=== PATIENT | female | born 1965 | race Caucasian/White ===

== ENCOUNTER 2019-04-30 06:00 | Day surgery (SDC) | payer OTHER ==
[~2019-04-30] VITALS: Ht 160 cm; Wt 94.8 kg
[2019-04-30] MEDS ORDERED: CEFAZOLIN SOD 1 GM in D5W 50 ML IV ONE (07:15)
[2019-04-30] MEDS ORDERED: SEVOFLURANE 15 MIN GAS INH ONE (07:45)
[2019-04-30] MEDS ORDERED: LR 1,000 ML IV.SOLN IV ONE (07:45)
[2019-04-30] MEDS ORDERED: NS IRRIG SOLN 1000 ML IR ONE (07:45)
[2019-04-30] MEDS ORDERED: ONDANSETRON HCL 4 MG/2 ML VIAL IVP ONE (07:45)
[2019-04-30] MEDS ORDERED: NS 1000 ML IV.SOLN IV ONE (07:45)
[2019-04-30] MEDS ORDERED: PROPOFOL 200MG/ 20ML VIAL (DIPRIVAN) IV ONE (07:45)
[2019-04-30] MEDS ORDERED: MIDAZOLAM HCL 5 MG/5 ML VIAL IVP ONE (07:45)
[2019-04-30] MEDS ORDERED: fentaNYL CITRATE/PF 100 MCG/2 ML AMP IVP ONE (07:45)
[2019-04-30] MEDS ORDERED: LR 1,000 ML IV SCH (08:27)
[2019-04-30] MEDS ORDERED: MEPERIDINE HCL/PF 25 MG/ML DISP.SYRIN IVP PRN (08:30)
[2019-04-30] MEDS ORDERED: METOCLOPRAMIDE HCL 10 MG/2 ML VIAL IVP PRN (08:30)
[2019-04-30] MEDS ORDERED: MEPERIDINE HCL/PF 50 MG/ML AMP IVP PRN ×2 (08:30)
[2019-04-30] MEDS ORDERED: KETOROLAC TROMETHAMINE 30 MG VIAL IVP PRN (08:30)
[2019-04-30] MEDS ORDERED: ONDANSETRON HCL 4 MG/2 ML VIAL IVP PRN (08:45)
[2019-04-30] MEDS ORDERED: OXYCODONE/ACETAMINOPHEN 5-325 TABLET PO PRN (08:45)
[2019-04-30] MEDS ORDERED: HYDROcodone/ACETAMIN 5-325 MG TAB (NORCO/ VICODIN) PO PRN (08:45)
[2019-04-30 10:06] VITALS: BP_SYST 113
[2019-04-30] MEDS ORDERED: OXYCODONE/ACETAMINOPHEN 5-325 TABLET ONE (10:12)
== END 2019-04-30 11:55 | disposition home or self-care (01) ==
LOC: SMU 06:00 → SDS 06:00 → SMU 11:02 → SDS 11:55
PROVIDERS: ATTEND Specialist
DX: N95.0 Postmenopausal bleeding (principal); N88.2 Stricture and stenosis of cervix uteri
CPT/HCPCS: 58558; 88305; J0690; J2250; J2405; J2704; J3010; J7030; J7060; J7120

== ENCOUNTER 2022-11-16 14:20 | Emergency (ER) | payer OTHER ==
[~2022-11-16] VITALS: Ht 160 cm; Wt 112.5 kg
[2022-11-16 14:32] VITALS: BP_SYST 132; PULSE 77; RESP 19; TEMP 97.6; O2SAT 99
[2022-11-16] MEDS ORDERED: HYDROcodone/ACETAMIN 10-325 MG TAB PO ONE (15:15)
[2022-11-16] MEDS ORDERED: IBUPROFEN 800 MG TABLET PO ONE (15:15)
[2022-11-16] MEDS ORDERED: cefTRIAXone 1 GM VIAL IM ONE (15:15)
[2022-11-16] MEDS ORDERED: IBUP-1971 PO (15:19)
[2022-11-16] MEDS ORDERED: HYDR-3927 PO (15:19)
[2022-11-16] MEDS ORDERED: CLIN-142 PO (15:19)
[2022-11-16 16:01] VITALS: BP_SYST 142; PULSE 79; RESP 18; TEMP 97.4; O2SAT 95
== END 2022-11-16 16:03 | disposition home or self-care (01) ==
LOC: SED 14:20
DX: N75.1 Abscess of Bartholin's gland (principal); R10.2 Pelvic and perineal pain; Z88.1 Allergy status to other antibiotic agents; Z88.2 Allergy status to sulfonamides
CPT/HCPCS: 99284; 82962; 96372; J0696

== ENCOUNTER 2023-11-13 06:23 | Day surgery (SDC) | payer OTHER ==
[~2023-11-13] VITALS: Ht 160 cm; Wt 110.7 kg
[~2023-11-13 06:23] MED LIST: CLIN-142 PO; HYDR-3927 PO; IBUP-1971 PO
[2023-11-13] MEDS ORDERED: CEFAZOLIN SOD 2 GM in D5W 50 ML IV ONE (07:00)
[2023-11-13 07:57] VITALS: O2SAT 99
[2023-11-13] MEDS ORDERED: fentaNYL CITRATE/PF 100 MCG/2 ML AMP ONE (08:15)
[2023-11-13] MEDS ORDERED: NS IRRIG SOLN 1000 ML IR ONE (08:15)
[2023-11-13] MEDS ORDERED: METOCLOPRAMIDE HCL 10 MG/2 ML VIAL ONE (08:15)
[2023-11-13] MEDS ORDERED: MIDAZOLAM HCL 2 MG/2 ML VIAL (VERSED) ONE (08:15)
[2023-11-13] MEDS ORDERED: HYDROmorphone 2 MG/ML VIAL ONE (08:15)
[2023-11-13] MEDS ORDERED: MIDAZOLAM HCL 5 MG/ML VIAL (VERSED) IV ONE (08:15)
[2023-11-13] MEDS ORDERED: NS 1000 ML IV.SOLN IV ONE (08:15)
[2023-11-13] MEDS ORDERED: NS IRRIG SOLN 5000 ML IR ONE (08:15)
[2023-11-13] MEDS ORDERED: ONDANSETRON HCL 4 MG/2 ML VIAL ONE (08:15)
[2023-11-13] MEDS ORDERED: KETOROLAC TROMETHAMINE 30 MG VIAL ONE (08:15)
[2023-11-13] MEDS ORDERED: LR 1,000 ML IV SCH (09:00)
[2023-11-13] MEDS ORDERED: KETOROLAC TROMETHAMINE 30 MG VIAL IVP PRN ×2 (09:00)
[2023-11-13] MEDS ORDERED: ONDANSETRON HCL 4 MG/2 ML VIAL IVP PRN ×2 (09:00→09:30)
[2023-11-13] MEDS ORDERED: HYDROcodone/ACETAMIN 5-325 MG TAB (NORCO/ VICODIN) PO PRN (09:30)
[2023-11-13] MEDS ORDERED: OXYCODONE/ACETAMINOPHEN 5-325 TABLET PO PRN ×2 (09:30)
[2023-11-13 13:17] VITALS: BP_SYST 101; PULSE 65; RESP 20
== END 2023-11-13 12:55 | disposition home or self-care (01) ==
LOC: SDS 06:23 → SMU 06:24 → SDS 12:55
PROVIDERS: ATTEND Specialist
DX: N95.0 Postmenopausal bleeding (principal); N85.02 Endometrial intraepithelial neoplasia [EIN]; R73.03 Prediabetes; Z68.41 Body mass index [BMI] 40.0-44.9, adult; E78.5 Hyperlipidemia, unspecified; G47.33 Obstructive sleep apnea (adult) (pediatric); E66.01 Morbid (severe) obesity due to excess calories; K21.9 Gastro-esophageal reflux disease without esophagitis; Z90.49 Acquired absence of other specified parts of digestive tract; Z98.891 History of uterine scar from previous surgery; Z90.721 Acquired absence of ovaries, unilateral; Z98.890 Other specified postprocedural states
CPT/HCPCS: 87081; 58561; 88305; J0690; J1885; J2765; J2250; J3465; J2405; J3010; J7060; J7030; C1819; J1170